=== PATIENT | female | born 1975 | race American Indian/Alaskan Native ===

== ENCOUNTER 2017-12-30 19:17 | Emergency (ER) | payer SELFPAY | END 2017-12-30 21:00 | disposition left against medical advice (07) | LOC: ED 19:17 | DX: M79.89 Other specified soft tissue disorders (principal); Z53.21 Procedure and treatment not carried out due to patient leaving prior to being seen by health care provider ==

== ENCOUNTER 2020-07-05 17:23 | Emergency (ER) | payer SELFPAY ==
[2020-07-05 17:41] VITALS: BP 144/94
== END 2020-07-05 19:50 | disposition left against medical advice (07) ==
LOC: ED 17:23
DX: N89.8 Other specified noninflammatory disorders of vagina (principal); Z53.21 Procedure and treatment not carried out due to patient leaving prior to being seen by health care provider